=== PATIENT | female | born 1955 | race Caucasian/White ===

== ENCOUNTER 2024-09-18 10:00 | Outpatient (CLI) | payer MEDICARE, OTHER, SELFPAY ==
[2024-09-18 13:25] LABS: Basophils # 0.1 K/mm3 (0-0.2); Basophils % 1.1 % (0.1-2.0); Eosinophils # 0.3 Kmm3 (0.0-0.4); Eosinophils % 6.4 % (0.1-12.0); Hematocrit 43.3 % (37.0-47.0); Hemoglobin 14.3 g/dL (12.2-16.2); Immature Granulocytes # 0.02 10^3uL; Immature Granulocytes % 0.5 %; Lymphocytes # 1.5 K/mm3 (0.7-4.5); Lymphocytes % 33.3 % (10-50); Mean Corpuscular Hemoglobin 31.2 pg (27.0-31.2); Mean Corpuscular Volume 94.3 fl (81-99); Mean Platelet Volume 10.9 fl (7.4-10.4); Monocytes # 0.3 K/mm3 (0.1-1.0); Monocytes % 7.8 % (1.7-9.3); Neutrophils # 2.2 K/mm3 (1.8-7.8); Neutrophils % 50.9 % (37.0-80.0); Nucleated Red Blood Cells # 0 10^3/uL; Nucleated Red Blood Cells % 0 %; Platelet Count 288 K/mm3 (142-424); Red Blood Count 4.59 M/mm3 (4.20-5.40); Red Cell Distribution Width 14.2 % (11.5-17.5); Red Cell Distribution Width-SD 49.4 fL; White Blood Count 4.4 K/mm3 (4.8-10.8)
[2024-09-18 14:14] LABS: Albumin/Globulin Ratio 2.5 (1.1-1.8); Alkaline Phosphatase 112 U/L (38-126); Anion Gap 16.7 mEq/L (5-15); Bilirubin,Total 0.7 mg/dl (0.2-1.3); Blood Urea Nitrogen 12 mg/dl (7-17); Calcium 9.5 mg/dl (8.4-10.2); Carbon Dioxide 25 mmol/L (22.0-30.0); Chloride 102 mmol/L (98-107); Estimated Glomerular Filt Rate 99 ml/min (>60); GFR (African American) 120 ML/MIN (>60); Glucose 69 mg/dl (74-100); HDL Cholesterol 103 mg/dl (40-60); Potassium 4.7 mmoL/L (3.5-5.1); Sodium 139 mmol/L (136-145)
[2024-09-18 14:16] LABS: Alanine Aminotransferase 29 U/L (12-78); Aspartate Amino Transferase 26 U/L (14-36); Cholesterol 209 mg/dl (140-200); Triglycerides 90 mg/dl (30-150); VLDL Cholesterol 18 mg/dL (0-40)
[2024-09-18 14:25] LABS: Direct LDL Cholesterol 75.22 mg/dL (100-129)
[2024-09-18 14:43] LABS: Thyroid Stimulating Hormone 2.58 uIU/mL (0.465-4.68)
== END 2024-09-18 23:59 | disposition home or self-care (01) ==
LOC: LAB.DROPOF 09-19 11:17
PROVIDERS: PCP Nurse Practitioner Family; Visit Provider Nurse Practitioner Family
DX: I10 Essential (primary) hypertension (principal)
CPT/HCPCS: 80053; 80061; 84443; 85025

== ENCOUNTER 2025-01-25 09:59 | Outpatient (CLI) | payer MEDICARE, SELFPAY ==
[2025-01-25 17:13] LABS: Cholesterol 313 mg/dl (140-200); HDL Cholesterol 78 mg/dl (40-60); Triglycerides 120 mg/dl (30-150)
--- OUTSIDE RECORDS SUMMARY | 2025-01-28 10:11 | XMS_ITS | Encounter Summary ---
Author Organization [email or web address] ([place], [place], [place], [place]) Address [address] [place] [address] Care Team Providers Care Marketing Area Manager Name Role Phone Unavailable Primary Care Provider Unavailabl e Encounter Details Date Type Department Care Team (Late st Contact Info) Description 08/10/2018 Transcribed Document [facility] [place] Family Medicine [facility] [place] [address] ProviderCarmella MD [facility] [place], [place] [id number] Social History Tobacco Use Types Packs/Day Years Used Date Smoking Tobacco: Never Assessed Comments Unknown Sex and Gender Information Value Date Recorded Sex Assigned at Not on file Legal Sex Female 6:32 PM CDT Gender Identity Not on file Sexual Orientation Not on file documented as of this encounter Miscellaneous Notes * Cerner Conversion Note - Historical ProviderMD - 08/10/2018 3:43 PM CDT Electronically signed by [facility] Conversion Stoner Hand Cerner at 08/03/2022 9:55 AM CDT documented in this encounter Plan of Treatment Not on file documented as of this encounter Visit Diagnoses Not on filedocumented in this encounter
--- OUTSIDE RECORDS SUMMARY | 2025-01-28 10:11 | XMS_ITS | Encounter Summary ---
Author Organization [employer] ([place], [place], [place], [place]) Address [address] [place] [address] Care Team Providers Care Skin Care Therapist Name Role Phone Unavailable Primary Care Provider Unavailabl e Encounter Details Date Type Department Care Team (Late st Contact Info) Description 08/10/2018 Transcribed Document [facility] [place] [facility] [place] [address] ProviderCarmella MD [address] [place] [address] Social History Tobacco Use Types Packs/Day Years Used Date Smoking Tobacco: Never Assessed Comments Unknown Sex and Gender Information Value Date Recorded Sex Assigned at Not on file Legal Sex Female 6:32 PM CDT Gender Identity Not on file Sexual Orientation Not on file documented as of this encounter Miscellaneous Notes * Cerner Conversion Note - Historical ProviderMD - 08/10/2018 11:48 AM CDT ED Triage Entered On: 08/10/2018 12:02 EDT Performed On: 08/10/2018 11:52 EDT by Maru Chaudhari RN ED Triage Across the Room Triage Date/Time : 08/10/2018 11:52 EDT Chief Complaint : c/o MS palpitations described as fluttering beginning 25 min 3D TECHNOLOGIST. Feels lightheaded with tremors. + SOA, nausea, diaphoresis. Denies pain. Has had similar episodes in past and states had negative w/u last year with PMD. Hx HTN. Maru Chaudhari RN - 08/10/2018 11:52 EDT DCP GENERIC CODE Tracking Acuity : 2 - Emergent Tracking Group : [facility] ED Maru Chaudhari RN - 08/10/2018 11:52 EDT Mode of Arrival : Ambulatory Transported to ED by : Private vehicle To Room Via : Wheelchair Accompanied By : Spouse ED Vital Signs : Document Height & Weight : Document ED Allergies : Document ED Reason for Visit : Document Tetanus Immunization : Unknown Maru Chaudhari RN - 08/10/2018 11:52 EDT Infectious Disease History Infectious Disease History : Chicken pox/Shingles, Measles, Mumps Fever/Chills Last 48 Hours : Yes Experiencing Infectious Disease Symptoms : No symptoms Travel To Regions with Travel Advisories : No Travel Outside [place] Within Last 30 Days : No Contact With Traveler to Advisory Region : No Tuberculosis Symptoms : Night Sweats Maru Chaudhari RN - 08/10/2018 11:52 EDT Vital Signs ED Temperature Source : Oral Temperature Mode : Fahrenheit Temperature, Fahrenheit : 97.3 Deg F ED Pain : No Clinical Temperature, C : 36.3 Deg C Oxygen Therapy Mode : Room air Peripheral Pulse Rate : 109 bpm (HI) Respiratory Rate : 20 Breaths/Min Systolic Blood Pressure : 126 mmHg Diastolic Blood Pressure : 87 mmHg Oxygen Saturation : 100 % Maru Chaudhari RN - 08/10/2018 11:52 EDT Allergy (As Of: 08/10/2018 12:03:00 EDT) Allergies (Active) No Known Allergies Estimated Onset Date: Unspecified ; Created By: SHAUNA KIM RN; Reaction Status: Active ; Category: Drug ; Substance: No Known Allergies ; Type: Allergy ; Updated By: SHAUNA KIM RN; Reviewed Date: 09/06/2017 14:34 EDT Diagnosis Control ED (As Of: 08/10/2018 12:03:00 EDT) Problems(Active) HTN (hypertension) (SNOMED CT :9172719394 ) Name of Problem: HTN (hypertension) ; Recorder: SHAUNA KIM RN; Confirmation: Confirmed ; Classification: Medical ; Code: [id number] ; Contributor System: Dime ; Last Updated: 09/06/2017 14:34 EDT ; Life Cycle Date: 09/06/2017 ; Life Cycle Status: Active ; Vocabulary: SNOMED CT Diagnoses(Active) Palpitations Date: 08/10/2018 ; Diagnosis Type: Reason For Visit ; Confirmation: Complaint of ; Clinical Dx: Palpitations ; Classification: Medical ; Clinical Service: Non-Specified ; Code: PNED ; Probability: 0 ; Diagnosis Code: [id number] Shortness of breath Date: 08/10/2018 ; Diagnosis Type: Reason For Visit ; Confirmation: Complaint of ; Clinical Dx: Shortness of breath ; Classification: Medical ; Clinical Service: Non-Specified ; Code: PNED ; Probability: 0 ; Diagnosis Code: [id number] ED Height and Weight Height Source : Stated Height Entry Format : [place] Height, Feet : 5 ft(Converted to: 152 cm, 60 Inch) Height, Inches : 2 Inch(Converted to: 0 ft 2 Inch, 5.08 cm) Clinical Height : 157.48 cm Weight Source, ED : Critical estimated dosing weight Weight Entry Format : [place] Weight, Pounds : 144 lb Clinical Dosing Weight : 65.45 kg Body Surface Area (BSA) : 1.66 m2 Body Mass Index : 26.4 kg/m2 (HI) [place] Body Weight (IBW) : 49.73 kg Maru Chaudhari RN - 08/10/2018 11:52 EDT documented in this encounter Plan of Treatment Not on file documented as of this encounter Visit Diagnoses Not on filedocumented in this encounter
--- OUTSIDE RECORDS SUMMARY | 2025-01-28 10:11 | XMS_ITS | Encounter Summary ---
Author Organization [employer] ([place], [place], [place], [place]) Address [address] [place] [address] Care Team Providers Care Safety Equipment Tester Name Role Phone Unavailable Primary Care Provider Unavailabl e Encounter Details Date Type Department Care Team (Late st Contact Info) Description 08/10/2018 Transcribed Document [facility] [place] Family Medicine [facility] [place] [address] ProviderCarmella MD [facility] [place], [place] [id number] Social History Tobacco Use Types Packs/Day Years Used Date Smoking Tobacco: Never Assessed Comments Unknown Sex and Gender Information Value Date Recorded Sex Assigned at Not on file Legal Sex Female 6:32 PM CDT Gender Identity Not on file Sexual Orientation Not on file documented as of this encounter Miscellaneous Notes * Cerner Conversion Note - Carmella ProviderMD - 08/10/2018 11:48 AM CDT ED Assessment Entered On: 08/10/2018 15:56 EDT Performed On: 08/10/2018 14:45 EDT by Shelby Sheets Rn-Flex Team ED Quick Look Assessment Level of Consciousness : Alert, Awake Affect/Behavior : Appropriate, Calm Orientation : Oriented x 4 Skin Temperature : Warm Shelby Sheets Rn-Flex Team - 08/10/2018 15:54 EDT ED General-Functional Assess Information Obtained From : Patient Preferred Communication Mode : Verbal Communication Barrier : None Primary Language : Vietnamese Any Spiritual/Cultural Needs or Requests : No Currently in Unsafe Situation : No Shelby Sheets Rn-Flex Team - 08/10/2018 15:54 EDT Social Habits Smoking Status : Former smoker, quit more than 30 days ago Smokeless Tobacco Status : Never Desires Tobacco Cessation Calc : 0 Shelby Sheets Rn-Flex Team - 08/10/2018 15:54 EDT Social History (As Of: 08/10/2018 15:56:29 EDT) Tobacco: Smoking Status Former smoker. Used Tobacco, but Quit Yes. Last Used: 29 years ago. (Last Updated: 09/06/2017 14:36:04 EDT by SHAUNA KIM, RN) Home/Environment: Lives with Spouse. (Last Updated: 09/06/2017 14:36:09 EDT by SHAUNA KIM, RN) Cardiovascular ASMT, ED Cardiovascular Assessment WDL : WDL with exceptions Cardiovascular Symptoms : Palpitations at rest, Palpitations with activity Heart Rhythm : Regular Nail Bed Color : May Chest Pain : No Shelby Sheets Rn-Flex Team - 08/10/2018 15:54 EDT Pulses Grid Radial Pulse, Left : 2+ normal Radial Pulse, Right : 2+ normal Sehlby Sheets Rn-Flex Team - 08/10/2018 15:54 EDT Capillary Refill, Left Hand : Less than/Equal to (</=) 2 seconds Capillary Refill, Right Hand : Less than/Equal to (</=) 2 seconds Capillary Refill, Left Foot : Less than/Equal to (</=) 2 seconds Capillary Refill, Right Foot : Less than/Equal to (</=) 2 seconds Clubbing Present : No Shelby Sheets Rn-Flex Team - 08/10/2018 15:54 EDT Respiratory Breath Sounds Auscultated : Posterior, Anterior, Laterally Respiratory Assessment WDL : WDL with exceptions Cough : None Shelby Sheets Rn-Flex Team - 08/10/2018 15:54 EDT Breath Sounds Assessment Grid All Lobes Breath Sounds : Clear Shelby Sheets Rn-Flex Team - 08/10/2018 15:54 EDT Respiratory Pattern Description : Regular Sputum Amount : None Shelby Sheets Rn-Flex Team - 08/10/2018 15:54 EDT Gastrointestinal ED Gastrointestinal Assessment WDL : WDL with exceptions Gastrointestinal Symptoms : Nausea Shelby Sheets Rn-Flex Team - 08/10/2018 15:54 EDT Bowel Sounds Bowel Sounds All Quadrants : Active Shelby Sheets Rn-Flex Team - 08/10/2018 15:54 EDT Neurologic ASMT, ED Neurologic Assessment WDL : WDL Shelby Sheets Rn-Flex Team - 08/10/2018 15:54 EDT Electronically signed by [facility] Conversion Ordnance Truck Installation Supervisor Cerner at 08/03/2022 9:58 AM CDT documented in this encounter Plan of Treatment Not on file documented as of this encounter Visit Diagnoses Not on filedocumented in this encounter
--- OUTSIDE RECORDS SUMMARY | 2025-01-28 10:11 | XMS_ITS | Clinical Summary ---
Author Organization [employer] [facility] ([place], [place], [place], [place]) Address [address] [place] [address] Care Team Providers Care Steward/Stewardess Name Role Phone Unavailable Primary Care Provider Unavailabl e Social History Tobacco Use Types Packs/Day Years Used Date Smoking Tobacco: Never Assessed Comments Unknown Sex and Gender Information Value Date Recorded Sex Assigned at Not on file Legal Sex Female 6:32 PM CDT Gender Identity Not on file Sexual Orientation Not on file Plan of Treatment Not on file
--- OUTSIDE RECORDS SUMMARY | 2025-01-28 10:11 | XMS_ITS | Encounter Summary ---
Author Organization [employer] ([place], [place], [place], [place]) Address [address] [place] [address] Care Team Providers Care Nurse Gynecology Name Role Phone Unavailable Primary Care Provider Unavailabl e Encounter Details Date Type Department Care Team (Late st Contact Info) Description 08/10/2018 Transcribed Document [facility] [place] Family Medicine [facility] [place] [address] ProviderCarmella MD [facility] [place], [place] [id number] Social History Tobacco Use Types Packs/Day Years Used Date Smoking Tobacco: Never Assessed Comments Unknown Sex and Gender Information Value Date Recorded Sex Assigned at Not on file Legal Sex Female 6:32 PM CDT Gender Identity Not on file Sexual Orientation Not on file documented as of this encounter Miscellaneous Notes * [employer]ner Conversion Note - Historical ProviderMD - 08/10/2018 4:11 PM CDT ED Discharge Entered On: 08/10/2018 16:12 EDT Performed On: 08/10/2018 16:11 EDT by Smitha Long Rn Discharge Process Patient Disposition : Discharge Personal Belongings With Patient : Yes Patient Education Completed : Yes Teaching Evaluation : Verbalizes understanding IV Discontinued : Not applicable Nursing Documentation Completed : Yes Smitha Long Rn - 08/10/2018 16:11 EDT ED Discharge Discharge To : Home with ambulatory/outpatient follow-up Mode Of Departure : Private vehicle Accompanied By : Spouse Discharge Instructions Reviewed With, Opportunity For Questions Given : Patient Prescriptions Given to Patient : No Smitha Long Rn - 08/10/2018 16:11 EDT documented in this encounter Plan of Treatment Not on file documented as of this encounter Visit Diagnoses Not on filedocumented in this encounter
--- OUTSIDE RECORDS SUMMARY | 2025-01-28 10:11 | XMS_ITS | Clinical Summary ---
Author Organization [facility] Address [address] [place] [address] Care Team Providers Care Sand Mill Operator Core Sand Name Role Phone Tova Quesadanisae Oliveira APRN Primary Care Provider [phone] Social History Tobacco Use Types Packs/Day Years Used Date Smoking Tobacco: Never Assessed Comments Unknown Sex and Gender Information Value Date Recorded Sex Assigned at Not on file Legal Sex Female 8:06 PM EDT Gender Identity Not on file Sexual Orientation Not on file Plan of Treatment Upcoming Encounters Date Type Department Care Team (Late st Contact Info) Description 10/21/2025 12:30 PM EDT Ovarian Cancer Screening [facility] [address] [facility] [place] [address] Health Maintenance Due Date Last Done Comments [facility]-Bone Density Scan 1955 [facility]-Depression Screening 1955 [facility]-Hepatitis C Screening 1955 [facility]-/Child/Adol SDOH Screenings 1955 [facility]- SDOH Screenings 1974 [facility]-Adult SDOH Screenings 1974 CT Colonography 2001 Colonoscopy 2001 FIT-DNA 2001 FIT 2001 FOBT 2001 Sigmoidoscopy 2001 [facility]-Colorectal Cancer Screening 2001 [facility]-Pneumococcal Vaccine: 50+ Years (1 of 1 - PCV) 2006 [facility]-Zoster Vaccines (2 of 3) 02/28/2017 01/03/2017 [id number] Vaccine (1 - 2023- season) 2024 [facility]-Influenza Vaccine (#1) 12/17/202401/16, 01/16/2017, 01/26/2013 [facility]-Breast Cancer Screening 10/24/2025 07/0 12/2023, 10/25/2023, 10/21/2022, Additional history exists [facility]-DTaP,Tdap,and Td Vaccines (3 - Td or Tdap) 09/07/2027 09/06/2017, 12/31/2011 [facility]-RSV Vaccine: 60+ Years or (1 - 1-dose 75+ series) 11/21/2031 [facility]-Cervical Cancer Screening Discontinued [facility]-HPV/Cotest Discontinued 01/29/1998, 10/02/1996 [facility]-Pap Smear Discontinued 01/29/1998, 10/02/1996 HPV Vaccines Aged Out No longer eligi ble based on patient's age to complete this topic [facility]-HIB Vaccines Aged Out No longer e ligible based on patient's age to complete this topic [facility]-Hepatitis A Vaccines Aged Out No longer eligible based on patient's age to complete this topic [facility]-IPV Vaccines Aged Out No longer e ligible based on patient's age to complete this topic [facility]-Rotavirus Vaccines Aged Out No lo nger eligible based on patient's age to complete this topic Procedures Procedure Name Priority Date/Time Associated Diagnosis Comments CYTO DATA CONVERSION Routine 01/29/1998 12:00 AM EDT from Last 3 Months or Most Recently Relevant to Health Maintenance Results * Cytology (01/29/1998 12:00 AM EDT) 01/29/1998 01/30/1998 Narrative SUNQUEST - 02/06/1998 12:00 AM EDT [facility] MR #: [id number] [facility]AMAR[facility] [place], [place] [address] 1955 (Age: 42) FW Collect Date: 01/29/1998 00:00 Receipt Date: 01/30/1998 00:00 Page 1 DEPARTMENT OF PATHOLOGY AND LABORATORY MEDICINE CYTOPATHOLOGY REPORT Email: [email or web address] * Converted Case * This report may not match the original report format ATTENDING MD/Practitioner: Barron Cardoza MD Service: [facility] [place]: Reported: 02/06/1998 00:00 Collected: 01/29/1998 00:00 INTERPRETATION CERVICAL/VAGINAL SMEAR WITHIN NORMAL LIMITS. SATISFACTORY FOR INTERPRETATION. Cervical/vaginal cytology is a screening test with a recognized false negative rate. New technologies may decrease but will not eliminate false negative results. Regular (generally annual) cytology screening is recommended to minimize false negative results. Electronically Signed Out By Boo Lu ABDOULAYE Carvalho ([facility]) No Signature Required Cervical cytology is a screening test primarily for squamous cancers and precursors and has associated false negative and positive results. New technologies such as liquid based sampling may decrease but will not eliminate all false negative results. Regular screening and follow-up of unexplained clinical signs and symptoms are recommended to minimize false negative results. Please see the ASCCP website (www.asccp.org) for followup recommendations. If HPV testing was requested, correlation with the results is suggested (please call Microbiology at [phone] for results). CLINICAL INFORMATION: Menstrual History: {Not Provided} Date of Last Menstrual Period: {Not Provided} SPECIMEN DESCRIPTION: A: CERVICAL/VAGINAL SMEAR, PAP ICD: F: {Not Entered} SNOMED CODES: 1; [id number] In cases where a pathologist has signed out the report, the service has been rendered in part by a resident. The signing pathologist has performed and is responsible for the reported pathologic evaluation. Historical Provider LAB PATHOLOGY ORDERABLES Fin al Result SUNQUEST from Last 3 Months or Most Recently Relevant to Health Maintenance Insurance Care Teams Sand Mill Operator Core Sand Relationship Specialty Start Date End Date Polly Quesada APRN [address] [place] [address] PCP - General 10/24/24
--- OUTSIDE RECORDS SUMMARY | 2025-01-28 10:11 | XMS_ITS | Clinical Summary ---
Author Organization [facility] Address [address] [place] [address] Care Team Providers Care Water Project Engineer Name Role Phone Polly Quesada APRN Primary Care Provider [phone] Allergies No known active allergies Medications sertraline (ZOLOFT) 50 MG tablet sertraline 50 mg tablet TAKE 1 TABLET DAILY Active buPROPion SR (WELLBUTRIN SR) 100 MG 12 hr tablet Wellbutrin SR 100 mg tablet, 12 hr sustained-releas e one tablet Bedtime Active lisinopril (PRINIVIL,ZESTR IL) 20 MG tablet lisinopril 20 mg tablet TAKE 1 TABLET AT BEDTIME Active montelukast (SINGULAIR) 10 MG tablet Singulair 10 mg tablet one tablet Daily Active esomeprazole (nexIUM) 40 MG capsule Every 12 (Twelve) Hours. Active fexofenadine (ROB) 180 MG tablet Rob 180 mg tablet one tablet Daily 1 Active Coenzyme Q10 10 MG capsule coenzyme Q10 Active Multiple Vitamins-Minera ls (MULTIVITAMIN ADULT EXTRA C PO) multivitamin Active Calcium Carbonate-Vit D-Min (CALCIUM 1200 PO) calcium Active Nucla-3 Fatty Acids (fish oil) 1000 MG capsule capsule Fish Oil 300 mg-1,000 mg capsule,delayed release Daily Active aspirin 81 MG chewable tablet aspirin Daily Active atorvastatin (LIPITOR) 40 MG tablet Take 40 mg by mouth Daily. Active Active Problems Problem Noted Date Diagnosed Date Gastroesophageal reflux disease without esophagi tis 03/16/2021 Supraventricular tachycardia 09/29/2018 Reactive airway disease 02/03/2017 Osteoarthritis 11/29/2016 Hypertensive disorder 02/19/2015 Family History Medical History Relation Name Comments Breast cancer Neg Hx Ovarian cancer Neg Hx Social History Tobacco Use Types Packs/Day Years Used Date Smoking Tobacco: Never Smokeless Tobacco: Never Alcohol Use Standard Drinks/Week Comments Never 0 (1 standard drink = 0.6 oz pur e alcohol) Comments No Sex and Gender Information Value Date Recorded Sex Assigned at Not on file Legal Sex Female 10:38 AM EDT Gender Identity Not on file Sexual Orientation Not on file Last Filed Vital Signs Vital Sign Reading Time Taken Comments Blood Pressure - - Pulse - - Temperature 36.6 C (97.9 F) 10/16/2021 1:16 PM EDT Respiratory Rate - - Oxygen Saturation - - Inhaled Oxygen Concentration - - Weight 77 kg (169 lb 12.8 oz) 10/16/2021 1:16 PM EDT Height 157.5 cm (5' 2 ) 10/16/2021 1:16 PM EDT Body Mass Index 31.06 10/16/2021 1:16 PM EDT Plan of Treatment Health Maintenance Due Date Last Done Comments DXA SCAN 1955 COLOGUARD 2001 COLON CANCER SCREENING 5 YEA R SIGMOIDOSCOPY 2001 CT COLONOGRAPHY 2001 FECAL OCCULT BLOOD TEST 2001 FIT Testing (1 year) 2001 Pneumococcal Vaccine 50+ (1 of 1 - PCV) 2006 ZOSTER VACCINE (2 of 3) 02/28/2017 01/03/2017 ANNUAL PHYSICAL 10/16/2021 HEPATITIS C SCREENING 10/16/2021 INFLUENZA VACCINE 11/16/2024 01/16/2018, , 01/26/2013 COVID-19 Vaccine (1 - 2023-2 5 season) 2024 MAMMOGRAM 10/26/2026 10/26/2024, 07/0 12/2023, 10/21/2022, Additional history exists COLONOSCOPY 11/15/2026 11/15/2016, 12/27/2006 COLORECTAL CANCER SCREENING 11/15/2026 TDAP/TD VACCINES (3 - Td or Tdap) 09/07/2027 018, 12/31/2011 Procedures Procedure Name Priority Date/Time Associated Diagnosis Comments MAMMO SCREENING DIGITAL TOMOSYNTHESIS BILATERAL W CAD Routine 10/26/2024 2:11 PM EDT Visit for screening mammogram from Last 3 Months or Most Recently Relevant to Health Maintenance Results * Mammo Screening Digital Tomosynthesis Bilateral With CAD (10/26/2024 2:11 PM EDT) Anatomical Region Laterality Modality Breast N/A Mammography 11/02/2024 9:07 PM EDT Impressions 11/02/2024 9:08 PM EDT No findings suspicious for malignancy. ACR BI-RADS CATEGORY: 1, NEGATIVE RECOMMENDATION: Yearly mammogram, yearly clinical breast exam, and encourage self breast awareness. CAD was used. The standard false negative rate of mammography is between 10% and 25%. Complex patterns or increased breast density will markedly elevate the false negative rate of mammography. A letter, in lay terminology, with the results of this exam will be mailed to the patient. If there is a palpable area of concern, biopsy should be considered regardless of imaging findings. 11/02/2024 9:08 PM by Rylee Campos MD on Narrative 11/02/2024 9:08 PM EDT ROUTINE DIGITAL SCREENING MAMMOGRAM WITH TOMOSYNTHESIS HISTORY: Routine screening. IMAGE COMPARISON: Extending to 2021. TECHNIQUE: Low dose full field digital breast tomosynthesis imaging was performed with 2D and 3D acquisitions consisting of bilateral CC and MLO views. FINDINGS: The breasts are predominantly adipose tissue. The fibroglandular pattern appears stable. There is no mass, worrisome microcalcifications, or architectural distortion to suggest development of malignancy. Polly Quesada APRN IMG MAMMOGRAPHY ORDERABLES F inal Result from Last 3 Months or Most Recently Relevant to Health Maintenance Insurance MEDICARE A & B [facility] SUP Care Teams Water Project Engineer Relationship Specialty Start Date End Date Polly Quesada APRN [address] [place] [address] [facility] [address] PCP - General 10/24/24
--- OUTSIDE RECORDS SUMMARY | 2025-01-28 10:11 | XMS_ITS | Referral Summary ---
Author Organization [employer] [facility] ([place], [place], [place], [place]) Address [address] [place] [address] Care Team Providers Care Income Tax Adjuster Name Role Phone Unavailable Primary Care Provider [...]
--- OUTSIDE RECORDS SUMMARY | 2025-01-28 10:11 | XMS_ITS | Encounter Summary ---
Author Organization [employer] ([place], [place], [place], [place]) Address [address] [place] [address] Care Team Providers Care Police Detective Name Role Phone Unavailable Primary Care Provider Unavailabl e Encounter Details Date Type Department Care Team (Late st Contact Info) Description 08/10/2018 Transcribed Document [facility] Family Medicine [facility] [place] [address] ProviderCarmella MD [address], [place] [id number] Social History Tobacco Use Types Packs/Day Years Used Date Smoking Tobacco: Never Assessed Comments Unknown Sex and Gender Information Value Date Recorded Sex Assigned at Not on file Legal Sex Female 6:32 PM CDT Gender Identity Not on file Sexual Orientation Not on file documented as of this encounter Miscellaneous Notes * Cerner Conversion Note - Carmella ProviderMD - 08/10/2018 2:46 PM CDT Patient: JAMARI FRANCISCO Age: 62 years Sex: Female : 1955 Associated Diagnoses: Palpitations Author: SUSAN OLIVER MD Basic Information Time seen: Date & time 08/10/2018 14:25:00. History source: Patient, family. Arrival mode: Private vehicle. History limitation: None. 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 Feels lightheaded with tremors. + SOA, nausea, diaphoresis. Denies pain. Has had similar episodes in past and states had negative w/u last year with PMD. Hx HTN. . History of Present Illness The patient presents with palpitations. pt states has been having episodes of heart fluttering for over a year; has had egd/stress test and ct per pmd without finding; today had another episode that brought her to the er; no chest pain; does feel soa with these episodes; no cp/soa/palpitations currently. Review of Systems Constitutional symptoms: Negative except as documented in HPI. Skin symptoms: Negative except as documented in HPI. Eye symptoms: Negative except as documented in HPI. Respiratory symptoms: Negative except as documented in HPI. Cardiovascular symptoms: Negative except as documented in HPI. Gastrointestinal symptoms: Negative except as documented in HPI. Genitourinary symptoms Musculoskeletal symptoms: Negative except as documented in HPI. Neurologic symptoms: Negative except as documented in HPI. Additional review of systems information: All other systems reviewed and otherwise negative, All systems reviewed as documented in chart. Health Status Allergies: Allergic Reactions (Selected) No Known Allergies. Medications: (Selected) Inpatient Medications Ordered Normal Saline Flush: 10 mL, IV Push, 1-Time, PRN: IV Use. Past Medical/ Family/ Social History Medical history Reviewed as documented in chart. Cardiovascular: hypertension. Surgical history: Hand ([id number]).. Family history: No family history items have been selected or recorded.. Social history: Social & Psychosocial Habits Home/Environment 09/06/2017 Lives with: Spouse Tobacco 09/06/2017 Smoking Status Former smoker Used Tobacco, but Quit Yes Month Tobacco Last Used 29 years ago . Problem list: Active Problems (1) HTN (hypertension) . Physical Examination Vital Signs Vital Signs/Vital Measures 08/10/2018 11:52 EDT Temperature Source Oral Temperature Mode Fahrenheit Temperature, Fahrenheit 97.3 Deg F Clinical Temperature, C 36.3 Deg C Peripheral Pulse Rate 109 bpm HI Respiratory Rate 20 Breaths/Min Systolic Blood Pressure 126 mmHg Diastolic Blood Pressure 87 mmHg Oxygen Saturation 100 % Oxygen Therapy Mode Room air . Per nurse's notes. Measurements 08/10/2018 11:52 EDT Height Source Stated Height Entry Format [place] Height/Length, ANGUILLAN (ft) 5 ft Height/Length ANGUILLAN 2 Inch CLINICALHEIGHT 157.48 cm [place] Body Weight 49.73 kg Weight Source, ED Critical estimated dosing weight Weight Entry Format [place] Weight [place] lb 144 lb CLINICALWEIGHT 65.45 kg Body Surface Area (BSA) 1.66 m2 Body Mass Index 26.4 kg/m2 HI . Oxygen Saturation 08/10/2018 11:52 EDT Oxygen Saturation 100 % . General: Alert, no acute distress. Skin: Warm, dry, pink, intact. Head: Atraumatic. Neck: Trachea midline. Eye: Normal conjunctiva. Ears, nose, mouth and throat: atraumatic . Cardiovascular: Regular rate and rhythm, No murmur, Normal peripheral perfusion. Respiratory: Lungs are clear to auscultation, respirations are non-labored, breath sounds are equal. Chest wall: No deformity. Back: atraumatic . Musculoskeletal: No swelling, no deformity. Gastrointestinal: Non distended, atraumatic. Neurological: Alert and oriented to person, place, time, and situation, No focal neurological deficit observed, CN II-XII intact, normal sensory observed, normal motor observed, normal speech observed. Psychiatric: Cooperative. Medical Decision Making Differential Diagnosis:: Atrial fibrillation, atrial flutter, paroxysmal supraventricular tachycardia, premature atrial contraction, premature ventricular contraction, ventricular tachycardia, anxiety, hyperthyroidism. Documents reviewed: Emergency department nurses' notes. Electrocardiogram: Time 08/10/2018 11:57:00, rate 109, EP Interp, sinus tach; artifaact; regular intervals; no st elevation. Results review: Lab results : Lab Results 08/10/2018 14:34 EDT Troponin I Ultra <0.015 ng/mL TSH 1.570 mcInt Units/mL 08/10/2018 12:18 EDT Sodium Level 140 mmol/L Potassium Level 4.0 mmol/L Chloride Level 108 mmol/L Carbon Dioxide Level 23 mmol/L Anion Gap 13 Glucose Level 117 mg/dL HI Blood Urea Nitrogen 13 mg/dL Creatinine Level 0.90 mg/dL eGFR >60 mL/min/1.73m2 eGFR NonAfrican >60 mL/min/1.73m2 Bun/Creatinine 14.4 Calcium Level 9.6 mg/dL Troponin I Ultra <0.015 ng/mL WBC 6.6 K/uL RBC 4.56 Million/uL Hgb 14.7 g/dL Hct 44.0 % MCV 96.5 fL HI MCH 32.2 pg MCHC 33.4 Gram/dL Platelet Count 294 K/uL MPV 10.7 fL RDW 14.1 % Neut % 57.5 % Neut # 3.76 K/uL Lymph % 28.5 % Lymph # 1.87 x10(3)/uL Peach % 7.6 % [place] # 0.50 K/uL Eos % 5.2 % Eos # 0.34 x10(3)/uL Baso % 0.9 % Baso # 0.06 x10(3)/uL Slide Review No IG# 0.02 x10(3)/uL IG% 0.30 % . Notes: repeat ekg 1438; nsr; rate 83; regular intervals; no st elevation. Reexamination/ Reevaluation Notes: no arrythmias in er; appt with [facility] tomorrow at 10:15. Impression and Plan Diagnosis Palpitations - Discharge, Emergency medicine, Medical Plan Condition: Stable. Disposition: Discharged Admit/Transfer/Discharge: Discharge (Order): Start: 08/10/2018 15:42 EDT, Discharge to: Home. Patient was given the following educational materials: Palpitations. Follow up with: SHANNAN KNIGHT Within 2 to 3 days; [facility] Within 2 to 3 days appointment tomorrow at 10:15. return for any worsening symptoms, or as needed. Counseled: Patient, Family, Regarding diagnosis, Regarding diagnostic results, Regarding treatment plan, Patient indicated understanding of instructions. documented in this encounter Plan of Treatment Not on file documented as of this encounter Visit Diagnoses Not on filedocumented in this encounter
--- OUTSIDE RECORDS SUMMARY | 2025-01-28 10:11 | XMS_ITS | Encounter Summary ---
Author Organization Healthcare Address [address] [place] [address] Care Team Providers Care Social Media Intern Name Role Phone Jfefrey Dolan MD Primary Care Provider [phone] Polly Quesada APRN Primary Care Provider [phone] Encounter Details Date Type Department Care Team (Latest Contact Info) Description 06/10/2023 [facility] [address] [place] [address] Rosanne Montes MD [address] [address] Postural urinary incontinence (Primary Dx); Urinary incontinence in female; Fecal smearing Social History Tobacco Use Types Packs/Day Years Used Date Smoking Tobacco: Never Assessed Comments Unknown Sex and Gender Information Value Date Recorded Sex Assigned at Not on file Legal Sex Female 8:06 PM EDT Gender Identity Not on file Sexual Orientation Not on file documented as of this encounter Plan of Treatment Upcoming Encounters Date Type Department Care Team (Late st Contact Info) Description 10/21/2025 12:30 PM EDT Ovarian Cancer Screening [facility] [address] [facility] [place] [address] documented as of this encounter Visit Diagnoses Diagnosis Postural urinary incontinence- Primary Urinary incontinence in female Fecal smearing documented in this encounter Care Teams Social Media Intern Relationship Specialty Start Date End Date Jeffrey Dolan MD [address] [place] [id number] PCP - General 08/29/20 10/23/24 Polly Quesada APRN [address] [place] [address] PCP - General 10/24/24 documented as of this encounter
--- OUTSIDE RECORDS SUMMARY | 2025-01-28 10:11 | XMS_ITS | Encounter Summary ---
Author Organization [employer] ([place], [place], [place], [place]) Address [address] [place] [address] Care Team Providers Care Telemarketing Manager Name Role Phone Unavailable Primary Care Provider Unavailabl e Encounter Details Date Type Department Care Team (Late st Contact Info) Description 08/11/2018 Transcribed Document [facility] Family Medicine Pending sale to [place] [address] ProviderCarmella MD [facility] [address] Social History Tobacco Use Types Packs/Day Years Used Date Smoking Tobacco: Never Assessed Comments Unknown Sex and Gender Information Value Date Recorded Sex Assigned at Not on file Legal Sex Female 6:32 PM CDT Gender Identity Not on file Sexual Orientation Not on file documented as of this encounter Miscellaneous Notes * Cerner Conversion Note - Historical ProviderMD - 08/11/2018 11:03 AM CDT CR Chest 1 Vw Portable Ordered: 08/10/2018 Modified Reason for Exam: SOA 08/10/2018 14:08 08/11/2018 11:03 (TAO SOTO, MANISH) Reviewed by Provider, No further action required X1 - no acute Electronically signed by Rose [facility] Conversion Mainframe Developer Cerner at 08/03/2022 9:57 AM CDT documented in this encounter Plan of Treatment Not on file documented as of this encounter Visit Diagnoses Not on filedocumented in this encounter
--- OUTSIDE RECORDS SUMMARY | 2025-01-28 10:11 | XMS_ITS | Encounter Summary ---
Author Organization [employer] ([place], [place], [place], [place]) Address [address] [place] [address] Care Team Providers Care Back Tender Cloth Printing Name Role Phone Unavailable Primary Care Provider Unavailabl e Encounter Details Date Type Department Care Team (Late st Contact Info) Description 08/10/2018 Transcribed Document [facility] [place] [facility] [address] ProviderCarmella MD [address] [place] [address] Social History Tobacco Use Types Packs/Day Years Used Date Smoking Tobacco: Never Assessed Comments Unknown Sex and Gender Information Value Date Recorded Sex Assigned at Not on file Legal Sex Female 6:32 PM CDT Gender Identity Not on file Sexual Orientation Not on file documented as of this encounter Miscellaneous Notes * Cerner Conversion Note - Carmella ProviderMD - 08/10/2018 3:46 PM CDT [facility] [place], [place] [id number] JAMARI RUCKER :1955 Visit Time:08/10/2018 Your Visit Summary Your Care Team Admitting Physician - SUSAN OLIVER MD Attending Physician - SUSAN OLIVER MD Primary Care Physician - SHANNAN KNIGHT MD-[facility] Referring Physician - SUSAN OLIVER MD Your Diagnosis Palpitations, Palpitations Palpitations Shortness of breath Patient Portal Reminder: Be sure to sign up for the [place] patient portal, which gives you 24/ access to your medical information ??? including these discharge instructions ??? using your computer, smartphone, or tablet. Just go to [employer] to get started. Questions? Call . You may also obtain a copy of your Emergency Department visit from Medical Records by calling the hospital phone number listed above and asking to be directed to the Medical Records Department. If you had special tests, such as EKG???s or X-rays, the interpretation of your tests given to you by the Emergency Department Physician is a preliminary report. Some fractures and illnesses fail to show up on preliminary tests. These will be reviewed again and we will call you if there are any new suggestions. If your symptoms continue notify your physician. After you leave, you should follow the instructions provided. What to do next Follow-Up Appointments Follow Up with [facility] CARDI[facility]Y [facility]ULMONOLOGY When Within 2 to 3 days Comments appointment tomorrow at 10:15. return for any worsening symptoms, or as needed Where: [address] [place] [address]- Business (1) Follow Up with SHANNAN KNIGHT When Within 2 to 3 days Where: [address] [place] [address]- Business (1) Allergies No Known Allergies Immunizations This Visit No Immunizations Found Medications The home medications listed are only as accurate as the information you provided. Please continue taking all of your medications prescribed by your Primary Care Provider unless specifically told to change or discontinue the medication. Please direct any questions regarding your home medications to your Primary Care Provider. Take your medications faithfully. Do NOT skip medication. Do NOT stop taking medications without the direction of a physician. Carry a list of your medications with you at all times, and take this medication list with you to your first follow up visit. Report any side effects. Avoid herbal remedies unless discussed with your physician. As part of your treatment plan, your physician may have prescribed a limited course of a controlled substance. This medication may be given to help people with moderate or severe pain or for other medical conditions, but there are risks involved with treatment. Common side effects may include nausea, constipation, drowsiness, sweating, itching, dry mouth, and rash. More serious side effects may include cognitive and motor impairment, like problems with thinking, concentrating, alertness, and movement (e.g. slowed reflexes), and driving and operating heavy machinery can be dangerous. It is important for you to talk to your physician if you have these side effects or questions. These controlled substances can produce physical dependence and be habit-forming if taken for an extended period of time, which means that the body has gotten used to them and may experience withdrawal symptoms if they are abruptly stopped. Withdrawal symptoms can include runny nose, sweating, goose bumps, diarrhea, abdominal cramping, rapid heartbeat, difficulty sleeping, and nervousness. Please dispose of unused and medications per pharmacy guidance. Test Results Laboratory or Other Results This Visit (last charted value for your 08/10/2018 visit) Hematology 08/10/18 12:18:00 WBC: 6.6 K/uL -- Normal range between ( 4.5 and 10.5 ) RBC: 4.56 Million/uL -- Normal range between ( 3.93 and 5.22 ) Hct: 44.0 % -- Normal range between ( 34.1 and 44.9 ) Hgb: 14.7 g/dL -- Normal range between ( 11.2 and 15.7 ) Platelet Count: 294 K/uL -- Normal range between ( 163 and 369 ) MCH: 32.2 pg -- Normal range between ( 25.6 and 32.2 ) MCHC: 33.4 Gram/dL -- Normal range between ( 32.2 and 36.5 ) MCV: 96.5 fL -- Normal range between ( 79.0 and 94.8 ) Slide Review: No Eos %: 5.2 % -- Normal range between ( 0.0 and 7.0 ) Andrews #: 0.50 K/uL -- Normal range between ( 0.16 and 1.00 ) Eos #: 0.34 x10(3)/uL -- Normal range between ( 0.00 and 0.80 ) Andrews %: 7.6 % -- Normal range between ( 3.0 and 9.0 ) Baso %: 0.9 % -- Normal range between ( 0.0 and 1.5 ) Baso #: 0.06 x10(3)/uL -- Normal range between ( 0.00 and 0.20 ) RDW: 14.1 % -- Normal range between ( 11.7 and 14.9 ) Neut %: 57.5 % -- Normal range between ( 34.0 and 71.0 ) Neut #: 3.76 K/uL -- Normal range between ( 1.56 and 6.13 ) Lymph %: 28.5 % -- Normal range between ( 19.3 and 53.1 ) Lymph #: 1.87 x10(3)/uL -- Normal range between ( 1.00 and 3.90 ) MPV: 10.7 fL -- Normal range between ( 9.4 and 12.4 ) IG#: 0.02 x10(3)/uL -- Normal range between ( 0.00 and 0.05 ) IG%: 0.30 % -- Normal range between ( 0.00 and 0.60 ) General Chemistry 08/10/18 12:18:00 Creatinine Level: 0.90 mg/dL -- Normal range between ( 0.55 and 1.02 ) Sodium Level: 140 mmol/L -- Normal range between ( 136 and 146 ) Potassium Level: 4.0 mmol/L -- Normal range between ( 3.5 and 5.1 ) Chloride Level: 108 mmol/L -- Normal range between ( 102 and 112 ) Carbon Dioxide Level: 23 mmol/L -- Normal range between ( 21 and 32 ) Anion Gap: 13 -- Normal range between ( 9 and 20 ) Bun/Creatinine: 14.4 -- Normal range between ( 8.0 and 20.0 ) Calcium Level: 9.6 mg/dL -- Normal range between ( 8.4 and 10.1 ) eGFR : >60 mL/min/1.73m2 eGFR NonAfrican: >60 mL/min/1.73m2 Glucose Level: 117 mg/dL -- Normal range between ( 74 and 106 ) Blood Urea Nitrogen: 13 mg/dL -- Normal range between ( 7 and 22 ) Cardiac Specific Markers 08/10/18 14:34:00 Troponin I Ultra: <0.015 ng/mL -- Normal range between ( 0.015 and 0.045 ) Endocrinology 08/10/18 14:34:00 TSH: 1.570 mcInt Units/mL -- Normal range between ( 0.358 and 3.740 ) Diagnostic Radiology 08/10/18 12:08:51 CR Chest 1 Vw Portable: CR Chest 1 Vw Portable Education Materials Palpitations A palpitation is the feeling that your heartbeat is irregular or is faster than normal. It may feel like your heart is fluttering or skipping a beat. Palpitations are usually not a serious problem. They may be caused by many things, including smoking, caffeine, alcohol, stress, and certain medicines. Although most causes of palpitations are not serious, palpitations can be a sign of a serious medical problem. In some cases, you may need further medical evaluation. Follow these instructions at home: Pay attention to any changes in your symptoms. Take these actions to help with your condition: ??? Avoid the following: ? Caffeinated coffee, tea, soft drinks, diet pills, and energy drinks. ? Chocolate. ? Alcohol. ??? Do notuse any tobacco products, such as cigarettes, chewing tobacco, and e-cigarettes. If you need help quitting, ask your health care provider. ??? Try to reduce your stress and anxiety. Things that can help you relax include: ? Yoga. ? Meditation. ? Physical activity, such as swimming, jogging, or walking. ? Biofeedback. This is a method that helps you learn to use your mind to control things in your body, such as your heartbeats. ??? Get plenty of rest and sleep. ??? Take amri-oqd-godymhj and prescription medicines only as told by your health care provider. ??? Keep all follow-up visits as told by your health care provider. This is important. Contact a health care provider if: ??? You continue to have a fast or irregular heartbeat after 24 hours. ??? Your palpitations occur more often. Get help right away if: ??? You have chest pain or shortness of breath. ??? You have a severe headache. ??? You feel dizzy or you faint. This information is not intended to replace advice given to you by your health care provider. Make sure you discuss any questions you have with your health care provider. Document Released: 04/01/2001 Document Revised: 09/06/2016 Document Reviewed: 12/18/2015 Elsevier Interactive Patient Education ?? 2017 Elsevier Inc. Emergency Awareness and Preventative Care STROKE is an EMERGENCY Every Minute Counts Act FAST and Check for these signs: FACE Does the face look uneven? ARM Does one arm drift down? SPEECH Does their speech sound strange? TIME Call at any sign of stroke Stroke Risk Factors Atrial Fibrillation (irregular heartbeat) Diabetes Family history of stroke Heart Disease Heavy alcohol use High Blood Pressure High Cholesterol Physical inactivity and obesity Smoking Cigarette Smoking The facts are clear, cigarette smoking will shorten your life. Smoking can cause many illnesses along the way. As a healthcare provider, we recommend that you stop smoking. Assistance with quitting is available by contacting 6-222-KYQLNOW. This is a free resource providing counseling, support, and referral. Or you may contact your personal physician. [place] Suicide Prevention Lifeline: The National Suicide Prevention Lifeline is a national network of local crisis centers that provides free and confidential emotional support to people in suicidal crisis or emotional distress 24 hours a day, 7 days a week. Don't Wait! Stop a Heart Attack Before it Starts What is a heart attack? A heart attack is damage or to a part of the heart from severely decreased or lack of blood flow to the heart. Over time, arteries can become narrow from the buildup of fat and cholesterol, which is called plaque. The plaque can rupture causing a blood clot to form. When the blood clot forms, the artery can become severely narrowed or completely blocked, causing a heart attack. Heart attack is the leading cause of in the [place]. 85% of muscle damage occurs within the first 2 hours. Delay in the recognition of heart attack symptoms increases the chances of . Know the early symptoms of a heart attack: Nausea Feeling of fullness in chest Jaw Pain Pain that travels down one or both arms Fatigue/being tired Anxiety Back Pain Chest pressure, squeezing, or discomfort Shortness of breath Sweating, or a cold sweat Feeling of impending doom There are unusual signs of a heart attack, too! Women, the elderly, and diabetics may present with atypical symptoms: Fainting/dizziness Weakness Confusion Risk Factors for a Heart Attack Some heart disease risk factors, such as age and family history, cannot be changed. Others, like smoking and lack of exercise, can be changed. Smoking High Cholesterol High Blood Pressure Family History Obesity Age Gender (Males are at higher risk) Lack of Exercise Diabetes Diet Stress Excessive Alcohol Intake If you or someone you know is experiencing the signs and symptoms of a heart attack, DON???T DELAY. Call immediately and seek help. If someone collapses, perform CPR! Do not attempt to drive if you are having symptoms of heart attack. Hands-Only CPR Why Hands-Only CPR? Hands-Only CPR has been shown to be as effective as conventional CPR for cardiac arrests that occur outside of a hospital. Survival depends on immediately receiving CPR from someone nearby. How do you perform Hands-Only CPR? There are two easy steps: Call 9-1-1 if you see a teen or adult collapse Push hard and fast in the center of the chest at a beat of 100 beats per minute. Save a life! 4 WAYS TO GET AHEAD OF SEPSIS SEPSIS is a MEDICAL EMERGENCY. Time matters! Infections put you and your family at risk for a life-threatening condition called sepsis. Sepsis is the body's extreme response to an infection. It is life-threatening, and without timely treatment, sepsis can rapidly lead to tissue damage, organ failure, and . Sepsis happens when an infection you already have-in your skin, lungs, urinary tract or somewhere else-triggers a chain reaction throughout your body. 1 PREVENT INFECTIONS Take good care of chronic conditions. Talk to your doctor about getting the recommended vaccines. 2 PRACTICE GOOD HYGIENE Wash your hands frequently. Keep cuts or open sores clean and covered until they are healed. 3 KNOW THE SYMPTOMS Confusion or disorientation Shortness of breath High heart rate Fever, shivering, or feeling very cold Extreme pain or discomfort Clammy or sweaty skin 4 ACT FAST Get medical care IMMEDIATELY if you suspect sepsis or if you have an infection that is not getting better or is getting worse. To learn more about sepsis and how to prevent infections, visit www.cdc.gov/sepsis. The examination and treatment you have received in the Emergency Department has been done to provide an appropriate evaluation and stabilizing treatment on an emergency basis only. Given the limited resources, it is not meant to be a substitute for complete medical care. The follow-up doctor you named will receive a copy of your records and all test reports. IT IS IMPORTANT THAT YOU SCHEDULE A FOLLOW-UP APPOINTMENT AND ARE RE-EVALUATED. You should report any new complaints, symptoms, or remaining problems at that time. IT IS IMPOSSIBLE FOR THE EMERGENCY DEPARTMENT TO RECOGNIZE AND TREAT ALL ELEMENTS OF INJURY OR ILLNESS IN A SINGLE VISIT. If you have been referred to a specialist physician, it means that we believe you may have a condition that requires the expertise of a specialist. These physicians work in partnership with the hospital and have agreed to see referred patients in their office for further evaluation. KEEP IN MIND THAT THE SPECIALIST HAS HIS/HER OWN OFFICE POLICIES WHICH MAY REQUIRE PROPER INSURANCE OR PAYMENT UP FRONT BEFORE THE SPECIALIST WILL SEE YOU. It is your responsibility to call the specialist physician to make an appointment. We do not have the ability to refer patients to specialists/physicians that work with specific insurance companies. Please be advised that all financial charges or billing practices are determined by that practice, not the hospital. If your insurance company requires that you see a specialist from their approved list, it is your responsibility to contact your insurance company to make those arrangements. It is also your responsibility to follow any other requirements of your insurance company necessary to obtain coverage for claims submitted. We will bill your insurance; however, you are responsible today for any co-pay amounts. You will receive a separate bill for any services you may have received including: emergency, radiology, or pathology physicians. Patient Name:JAMARI RUCKER I have received this information and was given the opportunity to ask questions. Patient/Maker Up Folding Name: Patient/Maker Up Folding Signature: Relationship to Patient: Clinician/Hospital Maker Up Folding Signature: Please Provide a Telephone Number Where You Can Be Reached: Is it Permissible To Leave a Message? Date: Electronically signed by Interface, [facility] Conversion Doctor Of Nurse Anesthesia Chilo at 08/03/2022 10:02 AM CDT documented in this encounter Plan of Treatment Not on file documented as of this encounter Visit Diagnoses Not on filedocumented in this encounter
== END 2025-01-25 23:59 ==
LOC: LAB.DROPOF 01-28 10:03
PROVIDERS: PCP Nurse Practitioner Family; Visit Provider Nurse Practitioner Family
DX: E78.5 Hyperlipidemia, unspecified (principal)
CPT/HCPCS: 80061

== ENCOUNTER 2025-01-29 13:51 | Outpatient (CLI) | payer MEDICARE, SELFPAY ==
--- NOTE | 2025-01-29 13:45 | CA_ITS ---
FINAL REPORT TECHNIQUE: Soler scale, color and spectral doppler images of the bilateral carotid arteries were obtained. CLINICAL HISTORY: dizziness FINDINGS: Peak systolic velocity in the right internal carotid artery is 82 cm/sec. The internal carotid to common carotid artery ratio is 1.46. There is mild intimal thickening of the CCA. No significant plaque. Less than 50% stenosis of the right carotid artery. The right vertebral artery is normal in direction. Peak systolic velocity in the left internal carotid artery is 82 cm/sec. The internal carotid to common carotid artery ratio is 1.62. There is mild plaque of the proximal left internal carotid artery. Less than 50% stenosis of the right carotid artery. The left vertebral artery is normal in direction. IMPRESSION: Less than 50% carotid artery stenosis bilaterally. Normal peak systolic velocities and normal internal to common carotid artery ratios bilaterally. Reviewed, Interpreted and Dictated by Sharona Cardoza MD Transcribed by Melodie Segura Authenticated and . [facility]
--- OUTSIDE RECORDS SUMMARY | 2025-01-29 13:54 | XMS_ITS | Clinical Summary ---
Author Organization Healthcare Address [address] [place] [address] Care Team Providers Care Pick And Shovel Worker Name Role Phone Tova Quesadanisae Oliveira APRN Primary Care Provider [phone] Social History Tobacco Use Types Packs/Day Years [...] 10/21/2025 12:30 PM EDT Ovarian Cancer Screening [facility] Gynecology [address] [address] Health Maintenance Due Date Last Done Comments [...] [facility]-Zoster Vaccines (2 of 3) 02/28/2017 01/03/2017 [id number] Vaccine (1 - 2023- season) 2024 UKY-Influenza [...] Narrative SUNQUEST - 02/06/1998 12:00 AM EDT [facility] MR #: [id number] [facility] JAMARI [place]ANC[place]CO [place], [place] [address] 1955 (Age: 42) FW Collect Date: 01/29/1998 00:00 Receipt Date: 01/30/1998 00:00 Page 1 DEPARTMENT OF PATHOLOGY AND LABORATORY MEDICINE CYTOPATHOLOGY REPORT Email: [phone] * Converted Case * This report may not match the original report format ATTENDING MD/Practitioner: Barron Cardoza MD Service: [facility] Location: Reported: 02/06/1998 00:00 Collected: 01/29/1998 00:00 [...] results is suggested (please call Microbiology at [phone] for results). CLINICAL INFORMATION: Menstrual History: {Not Provided} Date of Last Menstrual Period: {Not Provided} SPECIMEN DESCRIPTION: A: CERVICAL/VAGINAL SMEAR, PAP ICD: F: {Not Entered} SNOMED CODES: 1; [id number] In cases where a pathologist has signed out the report, the service has been rendered in part by a resident. The signing pathologist has performed and is responsible for the reported pathologic evaluation. Historical Provider LAB PATHOLOGY ORDERABLES Fin al Result SUNQUEST from Last 3 Months or Most Recently Relevant to Health Maintenance Insurance Care Teams Pick And Shovel Worker Relationship Specialty Start Date End Date Polly Quesada APRN [address] [place] [address] PCP - General 10/24/24
--- OUTSIDE RECORDS SUMMARY | 2025-01-29 13:54 | XMS_ITS | Encounter Summary ---
Author Organization Healthcare Address [address] [place] [address] Care Team Providers Care Policy Intern Name Role Phone Jeffrey Dolan MD Primary Care Provider [phone] Polly Quesada APRN Primary Care Provider [phone] Encounter Details Date Type Department Care Team (Latest Contact Info) Description 06/10/2023 Community [facility] Community Practice [address] [place] [address] Rosanne Montes MD [address] [address] Postural urinary incontinence (Primary Dx); Urinary incontinence [...] EDT Ovarian Cancer Screening [facility] Gynecology [address] [facility]rd [place] [address] documented as of this encounter Visit Diagnoses Diagnosis Postural urinary incontinence- Primary Urinary incontinence in female Fecal smearing documented in this encounter Care Teams Policy Intern Relationship Specialty Start Date End Date Jeffrey Dolan MD [address] [place] [address] PCP - General 08/29/20 10/23/24 Polly Quesada APRN [address] [place] [address] PCP - General 10/24/24 documented as of this encounter
--- OUTSIDE RECORDS SUMMARY | 2025-01-29 13:54 | XMS_ITS | Encounter Summary ---
Author Organization [email or web address] ([place], [place], [place], [place]) Address [address] [place] [address] Care Team Providers Care Fire Chief Name Role Phone Unavailable Primary Care Provider Unavailabl e Encounter Details Date Type Department Care Team (Late st Contact Info) Description 08/10/2018 Transcribed Document [facility] [place] Family Medicine [facility] [place] [address] ProviderCarmella MD [facility] [place] [id number] Social History Tobacco Use Types Packs/Day Years [...]
--- OUTSIDE RECORDS SUMMARY | 2025-01-29 13:54 | XMS_ITS | Encounter Summary ---
Author Organization [employer] ([place], [place], [place], [place]) Address [address] [place] [address] Care Team Providers Care Wellness Coach Name Role Phone Unavailable Primary Care Provider Unavailabl e Encounter Details Date Type Department Care Team (Late st Contact Info) Description 08/10/2018 Transcribed Document [facility] [place] Family [place] [address] ProviderCarmella MD [address] [place] [address] Social History Tobacco Use Types Packs/Day [...] Carmella ProviderMD - 08/10/2018 3:46 PM CDT [facility] [place], [place] [id number] JAMARI RUCKER :1955 Visit Time:08/10/2018 Your Visit Summary Your Care Team Admitting Physician - SUSAN OLIVER MD Attending Physician - SUSAN OLIVER MD Primary Care Physician - SHANNAN KNIGHT MD-[facility] Referring Physician - SUSAN OLIVER MD Your Diagnosis Palpitations, Palpitations Palpitations Shortness of breath Patient Portal Reminder: Be sure to sign up for the [employer] patient portal, which gives you 24/ access to your medical information ??? including these discharge instructions ??? using your computer, smartphone, or tablet. Just go to [employer] to get started. Questions? Call . You [...] do next Follow-Up Appointments Follow Up with [facility] CARDIOLOGY AND PULMONOLOGY When Within 2 to 3 days Comments appointment tomorrow at 10:15. return for any worsening symptoms, or as needed Where: [address] [place] [address]- Business (1) Follow Up with SHANNAN KNIGHT When Within 2 to 3 days Where: [address] [place] [address]- Business (1) Allergies No Known [...] range between ( 0.0 and 7.0 ) Catron #: 0.50 K/uL -- Normal range between ( 0.16 and 1.00 ) Eos #: 0.34 x10(3)/uL -- Normal range between ( 0.00 and 0.80 ) Catron %: 7.6 % -- Normal range between [...] plenty of rest and sleep. ??? Take xfou-kvq-niooepo and prescription medicines only as told by [...] Assistance with quitting is available by contacting 2-171-FIABNOW. This is a free resource providing counseling, support, and referral. Or you may contact your personal physician. [place] Suicide Prevention Lifeline: The National Suicide Prevention [...] was given the opportunity to ask questions. Patient/Equipment Operat0R Name: Patient/Equipment Operat0R Signature: Relationship to Patient: Clinician/Hospital Equipment Operat0R Signature: Please Provide a Telephone Number Where You Can Be Reached: Is it Permissible To Leave a Message? Date: Electronically signed by Interface, [facility] Conversion Green End Man Chilo at 08/03/2022 10:02 AM CDT documented in this encounter Plan of Treatment Not on file documented as of this encounter Visit Diagnoses Not on filedocumented in this encounter
--- OUTSIDE RECORDS SUMMARY | 2025-01-29 13:54 | XMS_ITS | Clinical Summary ---
Author Organization [employer] [facility] ([place], [place], [place], [place]) Address [address] [place] [address] Care Team Providers Care Supervisor Stripping Name Role Phone Unavailable Primary Care Provider [...]
--- OUTSIDE RECORDS SUMMARY | 2025-01-29 13:54 | XMS_ITS | Encounter Summary ---
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 + SOA, nausea, [...] in chart. Cardiovascular: hypertension. Surgical history: Hand ([id number]).. Family history: No family history items have [...] EDT Height Source Stated Height Entry Format [place] Height/Length, BURMESE (ft) 5 ft Height/Length BURMESE 2 Inch CLINICALHEIGHT 157.48 cm [place] Body Weight 49.73 kg Weight Source, ED Critical estimated dosing weight Weight Entry Format [place] Weight [place] lb 144 lb CLINICALWEIGHT 65.45 kg Body [...] % 28.5 % Lymph # 1.87 x10(3)/uL [place] % 7.6 % [place] # 0.50 K/uL Eos % 5.2 % Eos # 0.34 x10(3)/uL Baso % 0.9 % Baso # 0.06 x10(3)/uL Slide Review No IG# 0.02 x10(3)/uL IG% 0.30 % . Notes: repeat ekg 1438; nsr; rate 83; regular intervals; no st elevation. Reexamination/ Reevaluation Notes: no arrythmias in er; appt with [facility] tomorrow at 10:15. Impression and Plan Diagnosis [...] treatment plan, Patient indicated understanding of instructions. Electronically signed by Lacho Rose Conversion Assistant Director Of Public Works Cerner at 08/03/2022 10:03 AM CDT documented in this encounter Plan of Treatment Not on file documented as of this encounter Visit Diagnoses Not on filedocumented in this encounter
--- OUTSIDE RECORDS SUMMARY | 2025-01-29 13:54 | XMS_ITS | Encounter Summary ---
Author Organization [employer] ([place], [place], [place], [place]) Address [address] [place] [address] Care Team Providers Care Hand Cigar Making Supervisor Name Role Phone Unavailable Primary Care Provider Unavailabl e Encounter Details Date Type Department Care Team (Late st Contact Info) Description 08/11/2018 Transcribed Document [facility] Family Medicine Counts include 234 beds at the [facility] [place] [address] ProviderCarmella MD Counts include [address] beds at the [facility] [place] [address] Social History Tobacco Use Types [...] - no acute Electronically signed by Rose [facility] Conversion Brick Catcher Cerner at 08/03/2022 9:57 AM CDT documented in this encounter Plan of Treatment Not on file documented as of this encounter Visit Diagnoses Not on filedocumented in this encounter
--- OUTSIDE RECORDS SUMMARY | 2025-01-29 13:54 | XMS_ITS | Clinical Summary ---
Author Organization [facility] Address [address] [place] [address] Care Team Providers Care Associate Media Director Name Role Phone Polly Quesada APRN Primary Care Provider [phone] Allergies No known active allergies Medications sertraline [...] Carbonate-Vit D-Min (CALCIUM 1200 PO) calcium Active [facility] John-3 Fatty Acids (fish oil) 1000 MG capsule [...] Health Maintenance Insurance MEDICARE [facility] & [facility] Care Teams Associate Media Director Relationship Specialty Start Date End Date Polly Quesada APRN [address] [place] [address] [facility] [id number] PCP - General 10/24/24
--- OUTSIDE RECORDS SUMMARY | 2025-01-29 13:54 | XMS_ITS | Encounter Summary ---
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 + SOA, nausea, diaphoresis. Denies pain. Has had similar episodes in past and states had negative w/u last year with PMD. Hx HTN. Maru Chaudhari RN - 08/10/2018 11:52 EDT DCP GENERIC CODE Tracking Acuity : 2 - Emergent Tracking Group : [facility] ED Maru Chaudhari RN - 08/10/2018 11:52 [...] 12:03:00 EDT) Problems(Active) HTN (hypertension) (SNOMED CT :8039724722 ) Name of Problem: HTN (hypertension) ; Recorder: SHAUNA KIM RN; Confirmation: Confirmed ; Classification: Medical ; Code: [id number] ; Contributor System: Disenia ; Last Updated: 09/06/2017 14:34 EDT ; Life Cycle Date: 09/06/2017 ; Life Cycle Status: Active ; Vocabulary: SNOMED CT Diagnoses(Active) Palpitations Date: 08/10/2018 ; Diagnosis Type: Reason For Visit ; Confirmation: Complaint of ; Clinical Dx: Palpitations ; Classification: Medical ; Clinical Service: Non-Specified ; Code: PNED ; Probability: 0 ; Diagnosis Code: [id number] Shortness of breath Date: 08/10/2018 ; Diagnosis Type: Reason For Visit ; Confirmation: Complaint of ; Clinical Dx: Shortness of breath ; Classification: Medical ; Clinical Service: Non-Specified ; Code: PNED ; Probability: 0 ; Diagnosis Code: [id number] ED Height and Weight Height Source : Stated Height Entry Format : [place] Height, Feet : 5 ft(Converted to: 152 cm, 60 Inch) Height, Inches : 2 Inch(Converted to: 0 ft 2 Inch, 5.08 cm) Clinical Height : 157.48 cm Weight Source, ED : Critical estimated dosing weight Weight Entry Format : [place] Weight, Pounds : 144 lb Clinical Dosing Weight : 65.45 kg Body Surface Area (BSA) : 1.66 m2 Body Mass Index : 26.4 kg/m2 (HI) Richardson Body Weight (IBW) : 49.73 kg Maru Chaudhari RN - 08/10/2018 11:52 EDT documented in this encounter Plan of Treatment Not on file documented as of this encounter Visit Diagnoses Not on filedocumented in this encounter
--- OUTSIDE RECORDS SUMMARY | 2025-01-29 13:54 | XMS_ITS | Referral Summary ---
Author Organization [employer] [facility] ([place], [place], [place], [place]) Address [address] [place] [address] Care Team Providers Care Picture Frames Inspector Name Role Phone Unavailable Primary Care Provider [...]
--- OUTSIDE RECORDS SUMMARY | 2025-01-29 13:55 | XMS_ITS | Encounter Summary ---
Author Organization [employer] ([place], [place], [place], [place]) Address [address] [place] [address] Care Team Providers Care Systems Test Technician Name Role Phone Unavailable Primary Care Provider Unavailabl e Encounter Details Date Type Department Care Team (Late st Contact Info) Description 08/10/2018 Transcribed Document [facility] [place] [address] ProviderCarmella MD [facility] [place], [place] [id number] Social History Tobacco Use Types Packs/Day Years [...] Communication Barrier : None Primary Language : Polish Any Spiritual/Cultural Needs or Requests : No [...] Rhythm : Regular Nail Bed Color : Twain Chest Pain : No Shelby Sheets Rn-Flex Team - 08/10/2018 15:54 EDT Pulses Grid Radial Pulse, Left : 2+ normal Radial Pulse, Right : 2+ normal Shelby Sheets Rn-Flex Team - 08/10/2018 15:54 [...] - 08/10/2018 15:54 EDT Electronically signed by [facility] Conversion Industrial Hygiene Manager Cerner at 08/03/2022 9:58 AM CDT documented in this encounter Plan of Treatment Not on file documented as of this encounter Visit Diagnoses Not on filedocumented in this encounter
--- OUTSIDE RECORDS SUMMARY | 2025-01-29 13:55 | XMS_ITS | Encounter Summary ---
Author Organization [employer] ([place], [place], [place], [place]) Address [address] [place] [address] Care Team Providers Care Real Estate Paralegal Name Role Phone Unavailable Primary Care Provider Unavailabl e Encounter Details Date Type Department Care Team (Late st Contact Info) Description 08/10/2018 Transcribed Document [facility] Family Medicine [facility] [address] ProviderCarmella MD Count includes the [facility] [place], [place] [id number] Social History Tobacco Use Types Packs/Day Years [...] 3:43 PM CDT Electronically signed by Rose [facility] Conversion Outreach Clinician Cerner at 08/03/2022 9:55 AM CDT documented in this encounter Plan of Treatment Not on file documented as of this encounter Visit Diagnoses Not on filedocumented in this encounter
--- OUTSIDE RECORDS SUMMARY | 2025-01-29 13:55 | XMS_ITS | Patient Health Record ---
Author Organization [facility] Address [address] [facility] [address] [place] [address] Care Team Providers Care Compressed Yeast Supervisor Name Role Phone Melly Gerard Unavailable [phone] Reason For Referral No Information Social History Social History Sexual History: Social Info Question Answer Notes Sexual History Had sex in the past 12 months (vaginal, oral, or anal)? Yes Drugs/Alcohol: Social Info Question Answer Notes Drugs Have you used drugs other than those for medical reasons in the past 12 months? No Alcohol Screen Did you have a drink containing alcohol in the past year? Yes Points 0 Interpretation Negative Tobacco Use: Social Info Question Answer Notes Tobacco Use/Smoking Are you a former smoker Tobacco use other than smoking: Are you an other tobac co user? 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) *Rectocele (Code also - associated fecal incontinence (R15.-)) (N81.6) 09/22/19 13 Active confirmed RECTOCELE Problem Adult health examination (127524508) Adult general medical exam (Z00.00) 09/22/19 13 Active confirmed ANNUAL EXAM Plan Of Treatment No Information Medical (General) History Medical History History ICD Code Urinary incontinence Urinary tract infections Anxiety Depression BUPROPION HCL 100 MG ORAL TABLET GRACE-SELTZER TABLET EFFERVESCENT MULTIVITAMINS TABS ROB ALLERGY TABS SM VITAMIN D3 TABLET CVS SLEEP AID CAPSULE CVS FISH OIL CAPSULE ASTEPRO 0.15 % NASAL SOLUTION SINGULAIR 10 MG ORAL TABLET CALCIUM CARBONATE TABLET PROVENTIL HFA AEROSOL SOLUTION PRILOSEC PACKET SERTRALINE HCL 50 MG ORAL TABLET CO Q 10 CAPSULE Surgical History Surgery Date(Month/Year) Hysterectomy/ bladder and rectal repair
== END 2025-01-29 23:59 | disposition home or self-care (01) ==
LOC: RT 13:52
PROVIDERS: PCP Nurse Practitioner Family; Visit Provider Nurse Practitioner Family
DX: I65.23 Occlusion and stenosis of bilateral carotid arteries (principal)
CPT/HCPCS: 93880